=== PATIENT | male | born 1940 | race Caucasian/White ===

== ENCOUNTER 2019-01-26 07:32 | Day surgery (SDC) | payer MEDICARE, SELFPAY ==
--- NOTE | 2018-12-24 04:55 | HP_ITS ---
Intake Vital Signs 12/24/18 Height 6 ft 12/24/18 Weight: 210 lb 12/24/18 Body Mass Index (BMI) 28.5 12/24/18 Blood Pressure 125/66 H 12/24/18 Blood Pressure Location Rt brachial 12/24/18 Blood Pressure Position Sitting 12/24/18 Respiratory Rate 16 Intake Visit Reasons: C-Scope Consult [employer] Super[employer] Required: No Is patient in pain?: No Allergies No Known Allergies Allergy (Unverified 12/24/18 14:49) Medications lisinopril 10 mg tablet 10 mg PO DAILY 12/24/18 [History Confirmed 12/24/18] pioglitazone 30 mg tablet 30 mg PO DAILY 12/24/18 [History Confirmed 12/24/18] simvastatin 40 mg tablet 40 mg PO QHS 12/24/18 [History Confirmed 12/24/18] PFSH Medical History Diabetes (Acute) High cholesterol (Acute) Prostate cancer (Acute) HTN (hypertension) (Chronic) Surgical History S/P hernia repair (Acute) s/p seed implant (Acute) Family History Mother Diabetes Social History Smoking Status: Never smoker alcohol intake: current alcohol intake frequency: holidays/special occasions only HPI HPI HPI: ANNA MARIE MILLER, is a 77 M who presents to the office today for HPI HPI Surgical H&P: Yes HPI: ANNA MARIE MILLER, is a 77 M who presents to the office today for screening colonoscopy. The patient has never had a screening colonoscopy in the past. He has no abdominal pain or blood in his stool. He has no family history of colon cancer ROS General General: No weight change or fatigue Cardio Cardiovascular: No murmur, pacemaker, heart disease, atrial fibrillation, high blood pressure, heart attack, heart stent, palpitations, shortness of breat with exertion or chest pain Psych Psychiatric: No depression or anxiety Resp Respiratory: No shortness of breath, No sleep apnea, No cough, No COPD, No asthma, No emphysema, No wheezing Gastro Gastrointestinal: No abdominal pain, No nausea or vomiting, No diarrhea, No constipation, No blood in stool, No acid reflux, No hemorrhoids, No ulcers, No gallbladder problem, No black,tarry stools Christopher Hematologic: No blood thinners Exam Const General: cooperative Orientation: alert, oriented x3 Resp Effort & Inspection: normal respiratory effort Auscultation: clear to auscultation bilaterally Cardio Rate: regular rate Rhythm: regular rhythm Heart Sounds: no murmurs GI Inspection: non-distended Palpation: soft, nontender Assessment & Plan Problems 1. Encounter for screening colonoscopy Z12. Plan I explained endoscopy in detail to the patient. I explained the risks including but not limited to stroke or heart attack with anesthesia, perforation of the GI tract, bleeding, infection. I explained that any of these could necessitate further emergency surgery. The patient understands and all questions were answered sufficiently. The patient wishes to proceed with procedure. Juanpablo Storey MD Pager: [facility] [address] [place] [address], [address] [place] [address] Office: Coding Level of Care Code Off vis,new,level 2 Diagnoses Encounter for screening colonoscopy Z12.12/24/18 2870 <Electronically signed by Juanpablo Storey MD> Date Juanpablo Storey MD I have re-examined the patient. There are no clinical changes since date of exam.
[2018-12-24 14:49] VITALS: BMI 28.5
[2019-01-26 08:17] VITALS: BP 128/65; PULSE 57; RESP 16; TEMP 36.6; O2SAT 99; BMI 27.8
[2019-01-26 08:50] LABS: Bedside Glucose 143 mg/dL (70-110)
--- NOTE | 2019-01-26 10:22 | HP.PCM_ITS ---
History of Present Illness Date of Admission: 01/26/19 The patient is a 78 year old M here for screening colonoscopy. Patient has never had a colonoscopy before. He denies any abdominal pain or history of blood in his stool. No family history of colon cancer. Past Medical/Surgical History - Planned Operation Planned Operative Procedure/s: CSCOPE Date of Operative Procedure: 01/26/19 Permit Signed: No S.O.S: No Is This Patient Having a Total Joint: No - Previous Hospitalizations/Surgeries HX Hospitalizations: Yes HX of Surgeries: HERNIA REPAIR. RADIATION SEED IMPLANT Any Problems With Anesthesia: No You/Your Family Experience Fever (Hyperthermia) With Anes: No Cholinesterase deficiency: No - Cardiovascular Hx Chest Pain within Last 2 months: No Hx of Irregular Heartbeat and/or Afib: No Hx Heart Attack: No Hx Congestive Heart Failure: No Hx Rheumatic Fever: No Hx Hypertension: Yes - CONTROLLED WITH MED Hx Internal Defibrillator: No Hx Pacemaker: No Hx Cardiac Catheterization: No Hx Cardiac Surgery/Stents/Etc.: No Hx Stress Test: No HX Edema: No Hx Pain in Legs when Walking/Leg Cramps: No - Respiratory Chronic Cough: No HX of Shortness of Breath: No Hoarseness: No Hx Chronic Obstructive Pulmonary Disease (COPD): No Hx Asthma: No Hx Emphysema: No Hx Sleep Apnea: No Hx Oxygen Use at Home: No Hx Respiratory Tract Infection/Cold (presently): No Do You Snore Loudly (louder than talking or can be heard): Yes Do You Often Feel Tired/ Fatigued/ Sleepy Dring Daytime?: No Has Anyone Observed You Stop Breathing During Sleep?: No Result (for STOP score): Positive Hx Smoking: No Smoking Status: Never smoker - Gastrointestinal Hx Gastroesophageal Reflux: No Hx Gastrointestinal Disorders: No Hx Gastrointestinal Bleed: No Hx Ulcer: No Hx Hiatal Hernia: No Difficulty Chewing/Swallowing: No Recent Onset of Swallowing Problems: No Special diet followed at home: Yes - ADA Hx Unplanned Weight Loss of 20#: No HX Unplanned Weight Gain of 20#: No - Neurological Hx Seizures: No HX Syncope/Blackout Spells/Unconsciousness: No Hx CVA/Stroke: No - CEREBRAL HEMORRHAGE 2008/NO DEFICITS Hx Transient Ischemic Attacks (TIA): No Hx Multiple Sclerosis: No Hx Parkinson's Disease: No Hx Head/Neck Injury: No Hx Headaches: Yes - 2008 WITH HEMORRHAGE Hx Back Injury/Pain: Yes - OCC BACK PAIN D/T ARTHRITIS Recent Onset of Speech Difficulty: No Restless Legs: No Does patient have nerve stimulator: No Patient instructed to have device shut off: No Rep notified?: No - Blood Disorder Hx Leukemia: No Bleeding Tendencies: Yes - BRUISES EASILY Hx Deep Vein Thrombosis: Yes - DVT IN LEG IN THE PAST Hx High Cholesterol: Yes - ON MED Blood Transmitted Disease: No Hx Hepatitis: No Hx Cirrhosis: No Hx Anemia: No Hx Blood Disorders: No - Genitourinary Hx Renal Disease: No - PROSTATE CANCER - Musculoskeletal Hx Arthritis: Yes Hx Rheumatoid Arthritis: No Hx Gout: No Recent Onset of an Orthopedic Problem: No - Endocrine Hx Diabetes: Yes Insulin: No Thyroid Disease: No Hx Steroid Therapy: No - Psycho/Social Hx Substance Use: No Hx Alcohol Use: No Hx Anxiety: No Hx Depression: No Mental Illness: No Hx Dementia: No - Miscellaneous Hx Cancer: Yes - PROSTATE CA Recent Exposure to Contagious Disease: No Active MRSA: No Hx of C-Diff: No Any Loose Teeth: No Allergies No Known Allergies Allergy (Unverified 01/26/19 08:15) - Discharge Is Pt Admitted From a [facility], or a Alf: No Who Could Help: After D/C, Where Do you Plan to Go: Return Home - From the PAT History Number of Risk Factors: 4 - Physical Exam General: Alert, Oriented x3 Neck: No JVD Lungs: Normal air movement Cardiovascular: Regular rate, Regular Rhythm Abdomen: Soft, Non Tender, Non-Distended Vital Signs Temp Pulse Resp BP Pulse Ox 97.8 F 57 L 16 128/65 H 99 01/26/19 08:17 01/26/19 08:17 01/26/19 08:17 01/26/19 08:17 01/26/19 08:17 Oxygen Delivery Method Room Air Weight: 205 lb 0.478 oz Body Mass Index (BMI) 27.8 POC Glucose 01/26/19 08:32 POC Glucose 143 H Assessment/Plan All Active Problems (Last Reviewed 12/24/18 @ 14:48 by Emy Beckwith) Encounter for screening colonoscopy (Acute) 78-year-old male screening colonoscopy I explained endoscopy in detail to the patient. I explained the risks including but not limited to stroke or heart attack with anesthesia, perforation of the GI tract, bleeding, infection. I explained that any of these could necessitate further emergency surgery. The patient understands and all questions were answered sufficiently. The patient wishes to proceed with procedure. Juanpablo Storey MD Pager: [facility] [address] [place] [address] [address] [place] [address] Office: Surgery Risks - Colonoscopy Risks Include but are not Limited To: Risks include but are not limited to: Bleeding, perforation requiring further surgery, inability to complete colonoscopy requiring barium enema.
[2019-01-26 10:23] VITALS: BP 113/67; BP 128/65; PULSE 57; RESP 16; TEMP 36.6; O2SAT 98
--- NOTE | 2019-01-26 10:24 | OP.ENDO_ITS ---
01/26/2019 Shiva Morgan Re : Colonoscopy procedure for Luis Chen Dear Eddie This procedure was performed on Saturday, January 26, 2019. My impressions and recommendations are as follows: Impressions : - The entire examined colon is normal. - No specimens collected. Recommendations : - Discharge patient to home. - Resume previous diet. - Continue present medications. - Repeat colonoscopy is not recommended due to current age (66 years or older) for screening purposes. My findings are described in the full procedure note, which is enclosed. If I can be of further assistance, please feel free to contact me at Doctor phone number(s): , Work: . Sincerely, Juanpablo Storey MD 01/26/2019 10:23:51 AM This report has been signed electronically.
[2019-01-26 10:30] VITALS: BP 108/64; BP 128/65; PULSE 61; RESP 16; O2SAT 96
[2019-01-26 10:35] VITALS: BP 113/67; BP 128/65; PULSE 53; RESP 16; O2SAT 95
[2019-01-26 10:40] VITALS: BP 117/62; BP 128/65; PULSE 50; RESP 16; TEMP 36.4; O2SAT 96
[2019-01-26 10:59] VITALS: BP 128/65
== END 2019-01-26 11:01 | disposition home or self-care (01) ==
LOC: EN 07:33 → AC 07:35
PROVIDERS: Visit Provider Surgery
PROC: 0DJD8ZZ Inspection of Lower Intestinal Tract, Via Natural or Artificial Opening Endoscopic (ICD-10-PCS; CPT 45378; principal; 2019-01-26 08:40)
DX: Z12.11 Encounter for screening for malignant neoplasm of colon (principal); E11.9 Type 2 diabetes mellitus without complications; I10 Essential (primary) hypertension; E78.00 Pure hypercholesterolemia, unspecified; M19.90 Unspecified osteoarthritis, unspecified site; Z79.899 Other long term (current) drug therapy; Z86.718 Personal history of other venous thrombosis and embolism; Z85.46 Personal history of malignant neoplasm of prostate
CPT/HCPCS: G0121; 82962; J7120

== ENCOUNTER → 2023-12-15 | Outpatient (CLI) | payer MEDICARE, SELFPAY ==
[2023-12-15 13:18] LABS: PSA,Total- Diagnostic 0.18 ng/mL (0.0-4.0)
== END | disposition home or self-care (01) ==
LOC: BIMLAB 09:46
PROVIDERS: PCP Internal Medicine; Visit Provider Internal Medicine
DX: C61 Malignant neoplasm of prostate (principal)
CPT/HCPCS: 36415; 84153

== ENCOUNTER → 2024-03-19 | Outpatient (CLI) | payer MEDICARE, SELFPAY ==
[2024-03-19 11:20] LABS: ALB/GLOB Ratio 1.5 RATIO (0.9-2.4); AST(SGOT) 18 U/L (15-37); Absolute Lymphocyte Count 0.81 X10^3/uL (0.83-4.51); Absolute Neutrophil Count 3.6 X10^3/uL (2.0-7.7); Alanine Aminotransfer ALT/SGPT 21 U/L (16-61); Albumin, Serum 3.9 g/dL (3.2-5.0); Alkaline Phosphatase 63 U/L (45-117); Anion Gap 4 (5-15); BUN 38 mg/dL (7-18); BUN/Creat Ratio 23.9 RATIO (10-20); Basophil% 1.8 % (0-1); Calcium,Total 9.2 mg/dL (8.5-10.1); Chloride 110 mmol/L (98-107); Cholesterol 139 mg/dL (200); Creatinine, Serum 1.59 mg/dL (0.70-1.30); EST Glomerular Filtration Rate 45 mL/min (>60); Eosinophil# 0.33 X10^3/uL; Eosinophils% 6.1 % (0-5); Est Glom Filt Rate - Afr Amer 54 mL/min (>60); Globulin 2.6 g/dL (2.2-4.2); Glucose 137 mg/dL (74-106); Hematocrit 46.4 % (40-54); Hemoglobin 14.7 g/dL (13.0-16.5); High Density Lipoprotein 60 mg/dL; Lymphocyte # 0.81 X10^3/ul (0.83-4.51); Lymphocyte % 14.9 % (19-41); Mean Corp Hgb Conc 31.7 g/dL (32-36); Mean Corpuscular Hgb 32.1 pg (27.0-32.0); Mean Corpuscular Volume 101.3 fL (80-94); Mean Platelet Vol. 11.6 fl (6.2-12.0); Monocyte# 0.55 X10^3/uL; Monocyte% 10.1 % (0-10); NRBC Flagged by Analyzer 0 % (0-5); Neutrophil # 3.63 X10^3/uL (2.7-7.7); Neutrophil % 66.7 % (47-70); Platelet Count 236 K/mm3 (150-450); Potassium 5.5 mmol/L (3.5-5.1); Protein, Total 6.5 g/dL (6.4-8.2); RBC Distribution Width SD 52.5 fl (35.1-43.9); Red Blood Count 4.58 M/mm3 (4.6-6.2); Sodium Level 142 mmol/L (136-145); Triglycerides 55 mg/dL; Very Low Density Lipoprotein 11 mg/dL (5-40); White Blood Count 5.4 K/mm3 (4.4-11.0)
[2024-03-19 11:47] LABS: Microalbumin,Random Urine < 5.0 mg/L (NO RANGE EST.)
== END | disposition home or self-care (01) ==
PROVIDERS: PCP Internal Medicine; Referring Provider Internal Medicine; Visit Provider Internal Medicine
DX: E11.9 Type 2 diabetes mellitus without complications (principal); I10 Essential (primary) hypertension
CPT/HCPCS: 36415; 80053; 80061; 82043; 82570; 85025

== ENCOUNTER → 2024-04-02 | Outpatient (CLI) | payer MEDICARE, SELFPAY ==
[2024-04-02 09:20] LABS: Anion Gap 5 (5-15); BUN 36 mg/dL (7-18); BUN/Creat Ratio 23.4 RATIO (10-20); Calcium,Total 8.6 mg/dL (8.5-10.1); Chloride 110 mmol/L (98-107); Creatinine, Serum 1.54 mg/dL (0.70-1.30); EST Glomerular Filtration Rate 46 mL/min (>60); Est Glom Filt Rate - Afr Amer 56 mL/min (>60); Glucose 140 mg/dL (74-106); Potassium 4.3 mmol/L (3.5-5.1); Sodium Level 142 mmol/L (136-145)
== END | disposition home or self-care (01) ==
PROVIDERS: PCP Internal Medicine; Referring Provider Internal Medicine; Visit Provider Internal Medicine
DX: I10 Essential (primary) hypertension (principal)
CPT/HCPCS: 36415; 80048

== ENCOUNTER → 2024-06-25 | Outpatient (CLI) | payer MEDICARE, SELFPAY ==
[2024-06-25 12:20] LABS: Hematocrit 44.6 % (40-54); Hemoglobin 14.7 g/dL (13.0-16.5); Mean Platelet Vol. 11.7 fl (6.2-12.0); Platelet Count 272 K/mm3 (150-450); RBC Distribution Width CV 13.5 % (11.6-14.6); RBC Distribution Width SD 50.3 fl (35.1-43.9); Red Blood Count 4.46 M/mm3 (4.6-6.2); White Blood Count 5.5 K/mm3 (4.4-11.0)
[2024-06-25 13:02] LABS: ALB/GLOB Ratio 1.6 RATIO (0.9-2.4); AST(SGOT) 12 U/L (15-37); Alanine Aminotransfer ALT/SGPT 17 U/L (16-61); Albumin, Serum 3.8 g/dL (3.2-5.0); Alkaline Phosphatase 79 U/L (45-117); Anion Gap 4 (5-15); BUN 39 mg/dL (7-18); BUN/Creat Ratio 27.1 RATIO (10-20); Calcium,Total 9.1 mg/dL (8.5-10.1); Chloride 109 mmol/L (98-107); Cholesterol 143 mg/dL (200); Creatinine, Serum 1.44 mg/dL (0.70-1.30); EST Glomerular Filtration Rate 50 mL/min (>60); Est Glom Filt Rate - Afr Amer 60 mL/min (>60); Globulin 2.4 g/dL (2.2-4.2); Glucose 145 mg/dL (74-106); High Density Lipoprotein 58 mg/dL; Protein, Total 6.2 g/dL (6.4-8.2); Sodium Level 141 mmol/L (136-145); T4 Free Direct 0.93 ng/dL (0.76-1.46); Triglycerides 70 mg/dL; Very Low Density Lipoprotein 14 mg/dL (5-40)
== END | disposition home or self-care (01) ==
LOC: BIMLAB 09:41
PROVIDERS: PCP Internal Medicine; Referring Provider Internal Medicine; Visit Provider Internal Medicine
DX: I12.9 Hypertensive chronic kidney disease with stage 1 through stage 4 chronic kidney disease, or unspecified chronic kidney disease (principal); E11.22 Type 2 diabetes mellitus with diabetic chronic kidney disease; N18.31 Chronic kidney disease, stage 3a
CPT/HCPCS: 36415; 80053; 80061; 84439; 84443; 85027

== ENCOUNTER → 2025-03-18 | Outpatient (CLI) | payer MEDICARE, SELFPAY ==
--- OUTSIDE RECORDS SUMMARY | 2025-03-18 10:03 | XMS RPT_ITS | CCD ---
Author Organization [facility] Care Team Providers Care Greaser Helper Name Role Phone Dr. Shiva Morgan Primary Care Provider Dr. Shiva Morgan Referring Provider [phone] Cortez Valle Attending Provider [phone] Oleghe, Efewongbe Referring Unavailable Oleghe, Efewongbe Attending Unavailable Oleghe, Efewongbe Primary Care Unavailable Oleghe, Efewongbe Referring Unavailable Oleghe, Efewongbe Attending Unavailable Oleghe, Efewongbe Primary Care Unavailable Oleghe, Efewongbe Referring Unavailable Oleghe, Efewongbe Attending Unavailable Oleghe, Efewongbe Primary Care Unavailable Oleghe, Efewongbe Primary Care Unavailable Oleghe, Efewongbe Referring Unavailable Oleghe, Efewongbe Attending Unavailable Oleghe, Efewongbe Attending Unavailable Shiva Morgan Referring Unavailable Shiva Morgan Primary Care Unavailable Oleghe, Efewongbe Referring Unavailable Oleghe, Efewongbe Attending Unavailable Oleghe, Efewongbe Primary Care Unavailable Oleghe, Efewongbe Primary Care Unavailable Oleghe, Efewongbe Referring Unavailable Oleghe, Efewongbe Attending Unavailable Oleghe, Efewongbe Primary Care Unavailable Oleghe, Efewongbe Attending Unavailable Oleghe Dr. Cortez MOMIN Primary Care Provider Dr. Cortez Valle MD Attending Provider [phone] Dr. Cortez Valle MD Referring Provider [phone] Medications Current Medications Medication Drug Class(es) Dates Sig (Normalized) Sig (Original) empagliflozin 25 mg oral tablet (5 sources) Sodium-Glucose Cotransporter 2 Inhibitor Start: 12-15-2023 End: 11-26-2024 take 1 tablet by mouth once daily Empagliflozin 25 mg tablet Active 25 mg PO DAILY 90 November 26, 2024 8:36am Start: 12-15-2023 End: 12-15-2023 take 1 tablet by mouth once daily Empagliflozin (Jardiance) 10 mg tablet Discontinued 10 mg PO DAILY December 15, 2023 12:00am December 15, 2023 9:28am levocetirizine dihydrochloride 5 mg oral tablet (4 sources) Histamine-1 Receptor Antagonist Start: 12-15-2023 End: 11-29-2024 take 1 tablet by mouth once daily Levocetirizine 5 mg tablet Active 5 mg PO DAILY 90 November 29, 2024 4:44pm lisinopril 10 mg oral tablet (4 sources) Angiotensin Converting Enzyme Inhibitor Start: 12-24-2018 End: 12-01-2024 take 1 tablet by mouth once daily Lisinopril 10 mg tablet Active 10 mg PO DAILY 90 December 01, 2024 8:53pm pioglitazone 45 mg oral tablet (5 sources) Peroxisome Proliferator Receptor alpha Agonist, Peroxisome Proliferator Receptor gamma Agonist, Thiazolidinedione Start: 03-18-2025 take 1 tablet by mouth once daily Pioglitazone 45 mg tablet Active 45 mg PO DAILY 90 3 March 18, 2025 8:53am Start: 12-24-2018 End: 03-18-2025 take 1 tablet by mouth once daily Pioglitazone 30 mg tablet Discontinued 30 mg PO DAILY 90 December 01, 2024 8:53pm March 18, 2025 8:53am simvastatin 40 mg oral tablet (4 sources) HMG-CoA Reductase Inhibitor Start: 12-24-2018 End: 12-01-2024 take 1 tablet by mouth at bedtime Simvastatin 40 mg tablet Active 40 mg PO AT BEDTIME 90 December 01, 2024 8:53pm Problems Active Problems Problem Classification Problem Date Documented Da te Episodic/Chronic Cancer of prostate (4 sources) Malignant tumor of prostate; Translations: [Malignant neoplasm of prostate] Onset: 03-10-2024 12-15-2023 Chronic Diabetes mellitus without complication (6 sources) Type 2 diabetes mellitus; Translations: [Type 2 diabetes mellitus without complications] Onset: 12-01-2024 12-15-2023 Chronic Disorders of lipid metabolism (6 sources) Hyperlipidemia; Translations: [Hyperlipidemia, unspecified] Onset: 03-19-2024 12-15-2023 Chronic Essential hypertension (6 sources) Hypertensive disorder; Translations: [Essential (primary) hypertension] Onset: 04-27-2024 12-15-2023 Chronic Hypertension with complications and secondary hypertension (1 source) Hypertensive chronic kidney disease with stage 1 through stage 4 chronic kidney disease, or unspecified chronic kidney disease; Translations: [Hypertensive chronic kidney disease with stage 1 through stage 4 chronic kidney disease, or unspecified chronic kidney disease] Onset: 07-20-2024 Chronic Other screening for suspected conditions (not mental disorders or infectious disease) (2 sources) Patient encounter status; Translations: [Encounter for screening for malignant neoplasm of colon] 12-24-2018 Episodic Other upper respiratory infections (2 sources) Upper respiratory infection; Translations: [Acute upper respiratory infection, unspecified] 12-01-2024 Episodic Past or Other Problems Problem Classification Problem Date Documented Da te Episodic/Chronic Unclassified (2 sources) s/p seed implant 03-18-2022 Results Test Name Value Interpretation Reference Range Facility Internal Medicine Office Vis iton 12-01-2024 Internal Medicine Office Visit [facility] [address] [facility] [place] [address] OFFICE VISIT Date of Service: 12/01/24 MR#: [id number] Acct: [id number] Name: LUIS CHEN Rep #: [id number] : 1940 Provider: Dr. Cortez gold MD Age/Sex: 83/M Location: [facility] Status: Signed Intake Vital Signs 06/25/24 09:26 12/01/24 10:38 Height 6 ft 6 ft Weight: 187 lb BMI 25.3 BP 120/70 Blood Pressure Location Lt brachial Position Sitting Respiration 14 Pulse 62 Pulse Source Monitor Temp 98.2 F Temp Source Temporal Pulse Oximetry (%) 97 Oxygen Delivery Method room air Intake Visit Reasons: 5 M FU Chief Complaint: Follow-up chronic conditions Asbestos Siding Installer Required: No Accompanied by: Is patient in pain?: No Allergies No Known Allergies Allergy (Unverified 12/01/24 10:29) Medications ???Medication ???Instructions ???Recorded ???Confirmed ???Type lisinopril 10 mg tablet 10 mg PO DAILY #90 tabs 12/25/23 0 12/01/24 Rx pioglitazone 30 mg tablet 30 mg PO DAILY #90 tabs 12/25/23 0 12/01/24 Rx simvastatin 40 mg tablet 40 mg PO QHS #90 tabs 12/25/23 Rx empagliflozin 25 mg tablet 25 mg PO DAILY #90 tabs 11/26/24 0 12/01/24 Rx levocetirizine 5 mg tablet 5 mg PO DAILY #90 tabs 11/29/24 Rx Have you fallen in the past year?: No [facility] Medical History (Updated 12/01/24 @ 11:[address] Cortez Valle MD) Upper respiratory infection Health care maintenance Hyperlipidemia Type 2 diabetes mellitus Prostate cancer High cholesterol HTN (hypertension) Diabetes Surgical History S/P hernia repair s/p seed implant Family History Mother Diabetes Father Cancer Social History adopted: No household members: spouse number of children: 3 current occupational status: retired pets and animals: No Smoking Status: Never smoker alcohol intake: never substance use type: does not use caffeine: No do you feel safe at home: Yes HPI HPI Chief Complaint: Follow-up chronic conditions Details: LUIS CHEN, is a 83 M who presents to the office today for follow-up of his chronic medical conditions. No acute concerns at this time. History of diabetes mellitus type 2 and A1c today is at 8.1 up from 7.7 at last check. He states that his PCP in [place] advised that he make some dietary changes which he has started doing. He also states that he remains active and has been taking his medications as prescribed. No concerns for hypoglycemia. History of hypertension, blood pressure today is at 120/70 mmHg. No syncopal and near syncopal episodes. Other chronic medical conditions are stable. Recent upper respiratory infection however, he states that he symptoms are improving. ROS Const Constitutional: No body ache, chills, excessive sweating, fatigue, fever(s), frequent falls, headache(s), snoring, weakness, sleep problems or change in appetite Eyes Eyes: No blurry vision, change in vision, floaters, visual disturbances, eye pain or Light sensitivity ENT ENT: Positive for nasal congestion, hoarseness and other; No abnormal hearing, ear or mastoid pain, tinnitus, balance problems, nosebleed/epistaxis, headache(s), neck pain or sore throat Resp Respiratory: No cough, excessive phlegm production, shortness of breath, snoring or wheezing Cardio Cardiology: No chest pain at rest, chest pain with exertion, excessive sweating, shortness of breath, dyspnea on exertion, lightheadedness, orthopnea or palpitations Gastro GI: No abdominal pain, change in bowel habits, constipation, cramping, diarrhea, nausea/dyspepsia or vomiting Genitourinary Male: No burning urination, painful urination, urinary incontinence or urinary frequency Musc Musculoskeletal: No abnormal gait, joint pain, back pain, limited range of motion, neck pain or numbness Skin Skin: No dry skin, redness, excessive hair growth, yellowing of the eye, lesions, itchy eyes, rash or wounds Neuro Neurology: No abnormal gait, abnormal hearing, behavioral changes, unsteady gait/balance, weakness, frequent falls, headache(s), memory loss, numbness or visual disturbances Psych Psychiatric: No anxiety, No behavioral changes, No change in appetite, No depression, No memory loss and No Thoughts of harming yourself/Others Endo Endocrine: Positive for other; No cold intolerance, excessive sweating, fatigue, flushing, heat intolerance, increased thirst/drinking or increased hunger Aller/Imm Allergy/Immunologic: No itchy eyes, seasonal allergy symptoms, hives or wheezing Christopher/Lymp Hematologic/Lymphatic: No easy bleeding, easy bruising, en (more content not included)... Normal [facility] - Hematology and Cell countsOrdered By: Cortez Valle on 12-01-2024 HbA1c (Bld) [Mass fraction] 8.1 % High 4.2-6.3 [facility] CBC-Complete Blood Cnt No Di ffon 06-25-2024 Erythrocyte distribution width (RBC) [Ratio] 13.5 % Normal 11.6-14.6 [facility] Comment on above: Performed By: #### L 100.0500, L500.4100, L500.4050, L501.9520, L506.0400 #### [facility] [address], [address] Hematocrit (Bld) [Volume fraction] 44.6 % Normal 40-54 [facility] Comment on above: Performed By: #### L 100.0500, L500.4100, L500.4050, L501.9520, L506.0400 #### [facility] [address] [place], [address] Hemoglobin (Bld) [Mass/Vol] 14.7 g/dL Normal 13.0-16.5 [facility] Comment on above: Performed By: #### L 100.0500, L500.4100, L500.4050, L501.9520, L506.0400 #### [facility] [address] [place], [address] MCH (RBC) [Entitic mass] 33.0 pg High 27.0-32.0 [facility] Comment on above: Performed By: #### L 100.0500, L500.4100, L500.4050, L501.9520, L506.0400 #### [facility] [address] [place], [address] MCHC (RBC) [Mass/Vol] 33.0 g/dL Normal 32-36 [facility] Comment on above: Performed By: #### L 100.0500, L500.4100, L500.4050, L501.9520, L506.0400 #### [facility] [address] [place], [address] MCV (RBC) [Entitic vol] 100.0 fL High 80-94 [facility] Comment on above: Performed By: #### L 100.0500, L500.4100, L500.4050, L501.9520, L506.0400 #### [facility] [address] [place], [address] Platelet mean volume (Bld) [Entitic vol] 11.7 fL Normal 6.2-12.0 [facility] Comment on above: Performed By: #### L 100.0500, L500.4100, L500.4050, L501.9520, L506.0400 #### [facility] [address] [place], [address] Platelets (Bld) [#/Vol] 272 10*3/uL Normal 150-450 [facility] Comment on above: Performed By: #### L 100.0500, L500.4100, L500.4050, L501.9520, L506.0400 #### [facility] [address] [place], [address] RBC (Bld) [#/Vol] 4.46 10*6/uL Low 4.6-6.2 [facility] Comment on above: Performed By: #### L 100.0500, L500.4100, L500.4050, L501.9520, L506.0400 #### [facility] [address] [place], [address] RDW SD 50.3 fl High 35.1-43.9 [facility] Comment on above: Performed By: #### L 100.0500, L500.4100, L500.4050, L501.9520, L506.0400 #### [facility] [address] [place], [address] WBC (Bld) [#/Vol] 5.5 10*3/uL Normal 4.4-11.0 [facility] Comment on above: Performed By: #### L 100.0500, L500.4100, L500.4050, L501.9520, L506.0400 #### [facility] [address] [place], [address] Comprehensive Metabolic Prof ilon 06-25-2024 Albumin [Mass/Vol] 3.8 g/dL Normal 3.2-5.0 [facility] Comment on above: Order Comment: DR. Kia DELGADO ORDERED BMP PHILLIP DE LOS SANTOS ORDERED CBC, CMP, LIPID, TSH AND FT4 Performed By: #### L 100.0500, L500.4100, L500.4050, L501.9520, L506.0400 #### [facility] [address] [place], [address] Albumin/Globulin [Mass ratio] 1.6 {ratio} Normal 0.9-2.4 [facility] Comment on above: Order Comment: DR. Kia DELGADO ORDERED BMP PHILLIP FILIBERTO ORDERED CBC, CMP, LIPID, TSH AND FT4 Performed By: #### L 100.0500, L500.4100, L500.4050, L501.9520, L506.0400 #### [facility] [address] [place], [address] ALK P 79 U/L Normal 45-117 [facility] Comment on above: Order Comment: DR. Kia DELGADO ORDERED BMP PHILLIP DE LOS SANTOS ORDERED CBC, CMP, LIPID, TSH AND FT4 Performed By: #### L 100.0500, L500.4100, L500.4050, L501.9520, L506.0400 #### [facility] [address] [place], [address] ALT [Catalytic activity/Vol] 17 U/L Normal 16-61 [facility] Comment on above: Order Comment: DR. Kia DELGADO ORDERED BMP PHILLIP DE LOS SANTOS ORDERED CBC, CMP, LIPID, TSH AND FT4 Performed By: #### L 100.0500, L500.4100, L500.4050, L501.9520, L506.0400 #### [facility] [address] [place], [address] AST [Catalytic activity/Vol] 12 U/L Low 15-37 [facility] Comment on above: Order Comment: DR. Kia DELGADO ORDERED BMP PHILLIP DE LOS SANTOS ORDERED CBC, CMP, LIPID, TSH AND FT4 Performed By: #### L 100.0500, L500.4100, L500.4050, L501.9520, L506.0400 #### [facility] [address] [place], [address] Bilirubin [Mass/Vol] 1.30 mg/dL High 0.20-1.00 [facility] Comment on above: Order Comment: DR. Kia DELGADO ORDERED BMP PHILLIP DE LOS SANTOS ORDERED CBC, CMP, LIPID, TSH AND FT4 Result Comment: For patients on eltrombopag therapy, use of Dimension Counce TBIL is not recommended. Performed By: #### L 100.0500, L500.4100, L500.4050, L501.9520, L506.0400 #### [facility] [address] [place], [address] BUN/CRE 27.1 RATIO High 10-20 [facility] Comment on above: Order Comment: DR. Kia DELGADO ORDERED SIMON DE LOS SANTOS ORDERED CBC, CMP, LIPID, TSH AND FT4 Performed By: #### L 100.0500, L500.4100, L500.4050, L501.9520, L506.0400 #### [facility] [address] [place], [address] CA,Total 9.1 mg/dL Normal 8.5-10.1 [facility] Comment on above: Order Comment: DR. Kia DELGADO ORDERED SIMON DE LOS SANTOS ORDERED CBC, CMP, LIPID, TSH AND FT4 Performed By: #### L 100.0500, L500.4100, L500.4050, L501.9520, L506.0400 #### [facility] [address] [place], [address] Chloride [Moles/Vol] 109 mmol/L High 98-107 [facility] Comment on above: Order Comment: DR. Kia DELGADO ORDERED BMP PHILLIP DE LOS SANTOS ORDERED CBC, CMP, LIPID, TSH AND FT4 Performed By: #### L 100.0500, L500.4100, L500.4050, L501.9520, L506.0400 #### [facility] [address] [place], [address] CO2 [Moles/Vol] 28.0 mmol/L Normal 21.0-32.0 [facility] Comment on above: Order Comment: DR. Kia DELGADO ORDERED BMP PHILLIP DE LOS SANTOS ORDERED CBC, CMP, LIPID, TSH AND FT4 Performed By: #### L 100.0500, L500.4100, L500.4050, L501.9520, L506.0400 #### [facility] [address] [place], [address] Creatinine [Mass/Vol] 1.44 mg/dL High 0.70-1.30 [facility] Comment on above: Order Comment: DR. Kia DELGADO ORDERED BMP PHILLIP DE LOS SANTOS ORDERED CBC, CMP, LIPID, TSH AND FT4 Result Comment: The validity of the calculated GFR GFRAA in patients over 70 years has not been determined. Clinical correlation is essential. Performed By: #### L 100.0500, L500.4100, L500.4050, L501.9520, L506.0400 #### [facility] [address] [place], [address] EST GFR - AA 60 mL/min Normal >60 [facility] Comment on above: Order Comment: DR. Kia DELGADO ORDERED BMP PHILLIP DE LOS SANTOS ORDERED CBC, CMP, LIPID, TSH AND FT4 Result Comment: Afri can Guyanese GFR Calc Performed By: #### L 100.0500, L500.4100, L500.4050, L501.9520, L506.0400 #### [facility] [address] [place], [address] GAP 4 Low 5-15 [facility] Comment on above: Order Comment: DR. Kia DELGADO ORDERED BMP PHILLIP DE LOS SANTOS ORDERED CBC, CMP, LIPID, TSH AND FT4 Performed By: #### L 100.0500, L500.4100, L500.4050, L501.9520, L506.0400 #### [facility] [address] [place], [address] GFR/1.73 sq M.predicted among non-blacks MDRD (S/P/Bld) [Vol rate/Area] 50 mL/min/{1.73_m2} Low >60 [facility] Comment on above: Order Comment: DR. Kia DELGADO ORDERED BMP PHILLIP DE LOS SANTOS ORDERED CBC, CMP, LIPID, TSH AND FT4 Result Comment: Non- GFR Calc Performed By: #### L 100.0500, L500.4100, L500.4050, L501.9520, L506.0400 #### [facility] [address] [place], [address] Globulin (S) [Mass/Vol] 2.4 g/dL Normal 2.2-4.2 [facility] Comment on above: Order Comment: DR. Kia DELGADO ORDERED [facility] PHILLIP DE LOS SANTOS ORDERED CBC, CMP, LIPID, TSH AND FT4 Performed By: #### L 100.0500, L500.4100, L500.4050, L501.9520, L506.0400 #### [facility] [address] [place], [address] Glucose [Mass/Vol] 145 mg/dL High 74-106 [facility] Comment on above: Order Comment: DR. Kia DELGADO ORDERED BMP PHILLIP DE LOS SANTOS ORDERED CBC, CMP, LIPID, TSH AND FT4 Result Comment: Fast ing Glucose result greater than or equal to 126 mg/dL suggests DIABETES MELLITUS per A.D.A. criteria. Performed By: #### L 100.0500, L500.4100, L500.4050, L501.9520, L506.0400 #### [facility] [address] [place], [address] Potassium [Moles/Vol] 5.0 mmol/L Normal 3.5-5.1 [facility] Comment on above: Order Comment: DR. Kia DELGADO ORDERED BMP PHILLIP DE LOS SANTOS ORDERED CBC, CMP, LIPID, TSH AND FT4 Performed By: #### L 100.0500, L500.4100, L500.4050, L501.9520, L506.0400 #### [facility] [address] [place], [address] Sodium [Moles/Vol] 141 mmol/L Normal 136-145 [facility] Comment on above: Order Comment: DR. Kia DELGADO ORDERED BMP PHILLIP DE LOS SANTOS ORDERED CBC, CMP, LIPID, TSH AND FT4 Performed By: #### L 100.0500, L500.4100, L500.4050, L501.9520, L506.0400 #### [facility] [address] [place], [address] T PROT 6.2 g/dL Low 6.4-8.2 [facility] Comment on above: Order Comment: DR. Kia DELGADO ORDERED SIMON DE LOS SANTOS ORDERED CBC, CMP, LIPID, TSH AND FT4 Performed By: #### L 100.0500, L500.4100, L500.4050, L501.9520, L506.0400 #### [facility] [address] [place], [address] Urea nitrogen [Mass/Vol] 39 mg/dL High 7-18 [facility] Comment on above: Order Comment: DR. Kia DELGADO ORDERED BMP PHILLIP DE LOS SANTOS ORDERED CBC, CMP, LIPID, TSH AND FT4 Performed By: #### L 100.0500, L500.4100, L500.4050, L501.9520, L506.0400 #### [facility] [address] [place], [address] Internal Medicine Office Vis gurwinder 06-25-2024 Internal Medicine Office Visit [facility] [address] [place] [address] [address] [place] [address] OFFICE VISIT Date of Service: 06/25/24 MR#: [id number] Acct: [id number] Name: LUIS CHEN Rep #: [id number] : 1940 Provider: Dr. Cortez gold MD Age/Sex: 83/M Location: [facility] Status: Signed Intake Vital Signs 03/19/24 09:17 06/25/24 09:26 Height 6 ft 6 ft Weight: 198 lb BMI 26.8 BP 118/62 Blood Pressure Location Lt brachial Position Sitting Respiration 16 Pulse 55 L Pulse Source Monitor Temp 97.7 F L Temp Source Temporal Pulse Oximetry (%) 97 Oxygen Delivery Method room air Intake Visit Reasons: 3 M FU Chief Complaint: 3 M FU Asbestos Siding Installer Required: No Accompanied by: Self Is patient in pain?: No Allergies No Known Allergies Allergy (Unverified 06/25/24 09:19) Medications ???Medication ???Instructions ???Recorded ???Confirmed ???Type empagliflozin 25 mg tablet 25 mg PO DAILY #90 tabs 12/15/23 06/25/24 Rx levocetirizine 5 mg tablet 5 mg PO DAILY #90 tabs 12/25/23 06/25/24 Rx lisinopril 10 mg tablet 10 mg PO DAILY #90 tabs 12/25/23 06/25/24 Rx pioglitazone 30 mg tablet 30 mg PO DAILY #90 tabs 12/25/23 06/25/24 Rx simvastatin 40 mg tablet 40 mg PO QHS #90 tabs 12/25/23 06/25/24 Rx Have you fallen in the past year?: No PFSH Medical History Health care maintenance Hyperlipidemia Type 2 diabetes mellitus Prostate cancer High cholesterol HTN (hypertension) Diabetes Surgical History S/P hernia repair s/p seed implant Family History Mother Diabetes Father Cancer Social History adopted: No household members: spouse number of children: 3 current occupational status: retired pets and animals: No Smoking Status: Never smoker alcohol intake: never substance use type: does not use caffeine: No do you feel safe at home: Yes HPI HPI Chief Complaint: 3 M FU Details: LUIS CHEN, is a 83 M who presents to the office today for follow-up of his chronic medical conditions. No acute concerns at this time. A1c today is at 7.7 up from 7.3. He admits that he has not been as active and has had a little more sweets than typical. He plans to make changes. Reports compliance with his medication. No concerns for hypoglycemia, does not routinely check his numbers at home. Other chronic medical conditions are stable. Will be going to [place] for the winter ROS Const Constitutional: No body ache, chills, excessive sweating, fatigue, fever(s), frequent falls, headache(s), snoring, weakness or change in appetite Eyes Eyes: No blurry vision, change in vision, bulging eyes, floaters, visual disturbances, eye pain or Light sensitivity ENT ENT: No abnormal hearing, ear or mastoid pain, tinnitus, balance problems, nosebleed/epistaxis, nasal congestion, headache(s), neck pain or sore throat Resp Respiratory: No cough, excessive phlegm production, pain on inspiration, shortness of breath, snoring or wheezing Cardio Cardiology: No chest pain at rest, chest pain with exertion, excessive sweating, dyspnea on exertion, lightheadedness, orthopnea or palpitations Gastro GI: No abdominal pain, change in bowel habits, constipation, cramping, diarrhea, nausea/dyspepsia or vomiting Genitourinary Male: No burning urination, painful urination, urinary incontinence or urinary frequency Musc Musculoskeletal: No abnormal gait, joint pain, back pain, limited range of motion, muscle weakness, neck pain or numbness Skin Skin: No dry skin, redness, excessive hair growth, yellowing of the eye, lesions, itchy eyes, rash or wounds Neuro Neurology: No abnormal gait, abnormal hearing, behavioral changes, unsteady gait/balance, weakness, frequent falls, headache(s), memory loss, numbness or visual disturbances Psych Psychiatric: No anxiety, No behavioral changes, No change in appetite, No depression, No memory loss and No Thoughts of harming yourself/Others Endo Endocrine: No cold intolerance, excessive sweating, fatigue, flushing, heat intolerance, increased thirst/drinking or increased hunger Aller/Imm Allergy/Immunologic: No itchy eyes, seasonal allergy symptoms, hives or wheezing Christopher/Lymp Hematologic/Lymphatic: No easy bleeding or easy bruising Exam Const General: cooperative, comfortable and no acute distress Orientation: alert, awake and oriented x3 HENMT Head: normal to inspection, normocephalic and atraumatic Ears: hearing grossly normal bilaterally Eyes General: appearance normal, both eyes and all related structures Neck Neck: normal visual inspection, full ROM and no lymphadenopathy (more content not included)... Normal [facility] Lipid Profileon 06-25-2024 Cholesterol [Mass/Vol] 143 mg/dL Normal 200 [facility] Comment on above: Order Comment: DR. Kia DELGADO ORDERED [facility] PHILLIP DE LOS SANTOS ORDERED CBC, CMP, LIPID, TSH AND FT4 Result Comment: <200 mg/dL Desirable 200-240 mg/dL Borderline >240 mg/dL High Risk Performed By: #### L 100.0500, L500.4100, L500.4050, L501.9520, L506.0400 #### [facility] [address] [place], [address] Cholesterol in HDL [Mass/Vol] 58 mg/dL Normal [facility] Comment on above: Order Comment: DR. Kia DELGADO ORDERED [facility] PHILLIP DE [place] ORDERED CBC, CMP, LIPID, TSH AND FT4 Result Comment: The drugs N-Acetylcysteine and Metamizole may falsely depress this assay. Reference Range HDL <40 mg/dL Low HDL Cholesterol HDL >or= 60 mg/dL High HDL Cholesterol Performed By: #### L 100.0500, L500.4100, L500.4050, L501.9520, L506.0400 #### [facility] [address] [place], [address] Cholesterol in LDL [Mass/Vol] 71 mg/dL Normal 0-130 [facility] Comment on above: Order Comment: DR. Kia DELGADO ORDERED BMP [facility] ORDERED CBC, CMP, LIPID, TSH AND FT4 Performed By: #### L 100.0500, L500.4100, L500.4050, L501.9520, L506.0400 #### [facility] [address] [place], [address] Cholesterol in VLDL [Mass/Vol] 14 mg/dL Normal 5-40 [facility] Comment on above: Order Comment: DR. Kia DELGADO ORDERED BMP [facility] ORDERED CBC, CMP, LIPID, TSH AND FT4 Performed By: #### L 100.0500, L500.4100, L500.4050, L501.9520, L506.0400 #### [facility] [address] [place], [address] Triglyceride [Mass/Vol] 70 mg/dL Normal [facility] Comment on above: Order Comment: DR. Kia DELGADO ORDERED BMP [facility] ORDERED CBC, CMP, LIPID, TSH AND FT4 Result Comment: The drugs N-Acetylcysteine and Metamizole may falsely depress this assay. Serum Triglycerides Reference Interval Normal <150 mg/dL Borderline high 150 - 199 mg/dL High 200 - 499 mg/dL Very High > or = 500 mg/dL Performed By: #### L 100.0500, L500.4100, L500.4050, L501.9520, L506.0400 #### [facility] [address] [place], [address] T4 Free Directon 06-25-2024 T4 FREE DIRECT 0.93 ng/dL Normal 0.76-1.46 [facility] Comment on above: Order Comment: DR. Kia DELGADO ORDERED BMP [facility] DE [facility] ORDERED CBC, CMP, LIPID, TSH AND FT4 Performed By: #### L 100.0500, L500.4100, L500.4050, L501.9520, L506.0400 #### [facility] [address] [place], [address] Thyroid Stim Hormone (TSH)on 06-25-2024 TSH 1.010 uIU/mL Normal 0.358-3.740 [facility] Comment on above: Order Comment: DR. Kia DELGADO ORDERED BMP [facility] ORDERED CBC, CMP, LIPID, TSH AND FT4 Performed By: #### L 100.0500, L500.4100, L500.4050, L501.9520, L506.0400 #### [facility] [address] [place], [address] Basic Metabolic Profile (BMP )on 04-02-2024 BUN/CRE 23.4 RATIO High 10-20 [facility] Comment on above: Performed By: #### L 500.2500 ####[facility] [address] [place], [address] CA,Total 8.6 mg/dL Normal 8.5-10.1 [facility] Comment on above: Performed By: #### L 500.2500 ####[facility] [address] [place], [address] Chloride [Moles/Vol] 110 mmol/L High 98-107 [facility] Comment on above: Performed By: #### L 500.2500 ####[facility] [address] [place], [address] CO2 [Moles/Vol] 27.0 mmol/L Normal 21.0-32.0 [facility] Comment on above: Performed By: #### L 500.2500 ####[facility] [address] [place], [address] Creatinine [Mass/Vol] 1.54 mg/dL High 0.70-1.30 [facility] Comment on above: Result Comment: The validity of the calculated GFR GFRAA in patients over 70 years has not been determined. Clinical correlation is essential. Performed By: #### L 500.2500 ####[facility] [address] [place], [address] EST GFR - AA 56 mL/min Low >60 [facility] Comment on above: Result Comment: Afri can Guyanese GFR Calc Performed By: #### L 500.2500 ####[facility] [address] [place], [address] GAP 5 Normal 5-15 [facility] Comment on above: Performed By: #### L 500.2500 ####[facility] [address] [place], [address] GFR/1.73 sq M.predicted among non-blacks MDRD (S/P/Bld) [Vol rate/Area] 46 mL/min/{1.73_m2} Low >60 [facility] Comment on above: Result Comment: Non- GFR Calc Performed By: #### L 500.2500 ####[facility] [address] [place], [address] Glucose [Mass/Vol] 140 mg/dL High 74-106 [facility] Comment on above: Result Comment: Fast ing Glucose result greater than or equal to 126 mg/dL suggests DIABETES MELLITUS per A.D.A. criteria. Performed By: #### L 500.2500 ####[facility] [address] [place], [address] Potassium [Moles/Vol] 4.3 mmol/L Normal 3.5-5.1 [facility] Comment on above: Performed By: #### L 500.2500 ####[facility] [address] [place], [address] Sodium [Moles/Vol] 142 mmol/L Normal 136-145 [facility] Comment on above: Performed By: #### L 500.2500 ####[facility] [address] [place], [address] Urea nitrogen [Mass/Vol] 36 mg/dL High 7-18 [facility] Comment on above: Performed By: #### L 500.2500 ####[facility] [address] [place], [address] CBC W/Diff, Automatedon 08-0 Absolute Lymph 0.81 X10 3/uL Low 0.83-4.51 [facility] Comment on above: Performed By: #### L 500.4050, L500.4100, L100.0100 #### [facility] [address] [place], [address] Absolute Neut 3.6 X10 3/uL Normal 2.0-7.7 [facility] Comment on above: Performed By: #### L 500.4050, L500.4100, L100.0100 #### [facility] [address] [place], [address] Basophils/100 WBC (Bld) 1.8 % High 0-1 [facility] Comment on above: Performed By: #### L 500.4050, L500.4100, L100.0100 #### [facility] [address] [place], [address] Eosinophils/100 WBC (Bld) 6.1 % High 0-5 [facility] Comment on above: Performed By: #### L 500.4050, L500.4100, L100.0100 #### [facility] [address] [place], [address] Erythrocyte distribution width (RBC) [Ratio] 14.0 % Normal 11.6-14.6 [facility] Comment on above: Performed By: #### L 500.4050, L500.4100, L100.0100 #### [facility] [address] [place], [address] Hematocrit (Bld) [Volume fraction] 46.4 % Normal 40-54 [facility] Comment on above: Performed By: #### L 500.4050, L500.4100, L100.0100 #### [facility] [address] [place], [address] Hemoglobin (Bld) [Mass/Vol] 14.7 g/dL Normal 13.0-16.5 [facility] Comment on above: Performed By: #### L 500.4050, L500.4100, L100.0100 #### [facility] [address] [place], [address] IG% 0.400 Normal 0.0-0.9 [facility] Comment on above: Result Comment: IG% - Immature Granulocytes (promyelocytes, myelocytes and metamyelocytes) > 1% indicates that a LEFT SHIFT is Present. Performed By: #### L 500.4050, L500.4100, L100.0100 #### [facility] [address] [place], [address] Lymphocytes/100 WBC (Bld) 14.9 % Low 19-41 [facility] Comment on above: Performed By: #### L 500.4050, L500.4100, L100.0100 #### [facility] [address] [place], [address] MCH (RBC) [Entitic mass] 32.1 pg High 27.0-32.0 [facility] Comment on above: Performed By: #### L 500.4050, L500.4100, L100.0100 #### [facility] [address] [place], [address] MCHC (RBC) [Mass/Vol] 31.7 g/dL Low 32-36 [facility] Comment on above: Performed By: #### L 500.4050, L500.4100, L100.0100 #### [facility] [address] [place], [address] MCV (RBC) [Entitic vol] 101.3 fL High 80-94 [facility] Comment on above: Performed By: #### L 500.4050, L500.4100, L100.0100 #### [facility] [address] [place], [address] Monocytes/100 WBC (Bld) 10.1 % High 0-10 [facility] Comment on above: Performed By: #### L 500.4050, L500.4100, L100.0100 #### [facility] [address] [place], [address] Neutrophils/100 WBC (Bld) 66.7 % Normal 47-70 [facility] Comment on above: Performed By: #### L 500.4050, L500.4100, L100.0100 #### [facility] [address] [place], [address] Nucleated RBC (Bld) [#/Vol] 0 10*3/uL Normal 0-5 [facility] Comment on above: Performed By: #### L 500.4050, L500.4100, L100.0100 #### [facility] [address] [place], [address] Platelet mean volume (Bld) [Entitic vol] 11.6 fL Normal 6.2-12.0 [facility] Comment on above: Performed By: #### L 500.4050, L500.4100, L100.0100 #### [facility] [address] [place], [address] Platelets (Bld) [#/Vol] 236 10*3/uL Normal 150-450 [facility] Comment on above: Performed By: #### L 500.4050, L500.4100, L100.0100 #### [facility] [address] [place], [address] RBC (Bld) [#/Vol] 4.58 10*6/uL Low 4.6-6.2 [facility] Comment on above: Performed By: #### L 500.4050, L500.4100, L100.0100 #### [facility] [address] [place], [address] RDW SD 52.5 fl High 35.1-43.9 [facility] Comment on above: Performed By: #### L 500.4050, L500.4100, L100.0100 #### [facility] [address] [place], [address] WBC (Bld) [#/Vol] 5.4 10*3/uL Normal 4.4-11.0 [facility] Comment on above: Performed By: #### L 500.4050, L500.4100, L100.0100 #### [facility] [address] [place], [address] Comprehensive Metabolic Prof [facility] 03-19-2024 Albumin [Mass/Vol] 3.9 g/dL Normal 3.2-5.0 [facility] Comment on above: Performed By: #### L 500.4050, L500.4100, L100.0100 ####[facility] [address] [place], [address] Albumin/Globulin [Mass ratio] 1.5 {ratio} Normal 0.9-2.4 [facility] Comment on above: Performed By: #### L 500.4050, L500.4100, L100.0100 ####[facility] [address] [place], [address] ALK P 63 U/L Normal 45-117 [facility] Comment on above: Performed By: #### L 500.4050, L500.4100, L100.0100 ####[facility] [address] [place], [address] ALT [Catalytic activity/Vol] 21 U/L Normal 16-61 [facility] Comment on above: Performed By: #### L 500.4050, L500.4100, L100.0100 ####[facility] [address] [place], [address] AST [Catalytic activity/Vol] 18 U/L Normal 15-37 [facility] Comment on above: Performed By: #### L 500.4050, L500.4100, L100.0100 ####[facility] [address] [place], [address] Bilirubin [Mass/Vol] 1.70 mg/dL High 0.20-1.00 [facility] Comment on above: Result Comment: For patients on eltrombopag therapy, use of Dimension Counce TBIL is not recommended. Performed By: #### L 500.4050, L500.4100, L100.0100 ####[facility] [address] [place], [address] BUN/CRE 23.9 RATIO High 10-20 [facility] Comment on above: Performed By: #### L 500.4050, L500.4100, L100.0100 ####[facility] [address] [place], [address] CA,Total 9.2 mg/dL Normal 8.5-10.1 [facility] Comment on above: Performed By: #### L 500.4050, L500.4100, L100.0100 ####[facility] [address] [place], [address] Chloride [Moles/Vol] 110 mmol/L High 98-107 [facility] Comment on above: Performed By: #### L 500.4050, L500.4100, L100.0100 ####[facility] [address] [place], [address] CO2 [Moles/Vol] 28.0 mmol/L Normal 21.0-32.0 [facility] Comment on above: Performed By: #### L 500.4050, L500.4100, L100.0100 ####[facility] [address] [place], [address] Creatinine [Mass/Vol] 1.59 mg/dL High 0.70-1.30 [facility] Comment on above: Result Comment: The validity of the calculated GFR GFRAA in patients over 70 years has not been determined. Clinical correlation is essential. Performed By: #### L 500.4050, L500.4100, L100.0100 ####[facility] [address] [place], [address] EST GFR - AA 54 mL/min Low >60 [facility] Comment on above: Result Comment: Afri can Guyanese GFR Calc Performed By: #### L 500.4050, L500.4100, L100.0100 ####[facility] [address] [place], [address] GAP 4 Low 5-15 [facility] Comment on above: Performed By: #### L 500.4050, L500.4100, L100.0100 ####[facility] [address] [place], [address] GFR/1.73 sq M.predicted among non-blacks MDRD (S/P/Bld) [Vol rate/Area] 45 mL/min/{1.73_m2} Low >60 [facility] Comment on above: Result Comment: Non- GFR Calc Performed By: #### L 500.4050, L500.4100, L100.0100 ####[facility] [address] [place], [address] Globulin (S) [Mass/Vol] 2.6 g/dL Normal 2.2-4.2 [facility] Comment on above: Performed By: #### L 500.4050, L500.4100, L100.0100 ####[facility] [address] [place], [address] Glucose [Mass/Vol] 137 mg/dL High 74-106 [facility] Comment on above: Result Comment: Fast ing Glucose result greater than or equal to 126 mg/dL suggests DIABETES MELLITUS per A.D.A. criteria. Performed By: #### L 500.4050, L500.4100, L100.0100 ####[facility] [address] [place], [address] Potassium [Moles/Vol] 5.5 mmol/L High 3.5-5.1 [facility] Comment on above: Performed By: #### L 500.4050, L500.4100, L100.0100 ####[facility] [address] [place], [address] Sodium [Moles/Vol] 142 mmol/L Normal 136-145 [facility] Comment on above: Performed By: #### L 500.4050, L500.4100, L100.0100 ####[facility] [address] [place], [address] T PROT 6.5 g/dL Normal 6.4-8.2 [facility] Comment on above: Performed By: #### L 500.4050, L500.4100, L100.0100 ####[facility] [address] [place], [address] Urea nitrogen [Mass/Vol] 38 mg/dL High 7-18 [facility] Comment on above: Performed By: #### L 500.4050, L500.4100, L100.0100 ####[facility] [address] [place], [address] Internal Medicine Office Vis gurwinder 03-19-2024 Internal Medicine Office Visit [facility] [address] [place] [address] [place] [address] OFFICE VISIT Date of Service: 03/19/24 MR#: [id number] Acct: [id number] Name: LUIS CHEN Rep #: [id number] : 1940 Provider: Dr. Cortez gold MD Age/Sex: 83/M Location: [facility] Status: Signed Intake Vital Signs 12/15/23 08:57 03/19/24 09:17 Height 6 ft 6 ft Weight: 204 lb 198 lb BMI 27.6 26.8 BP 122/78 H 118/70 Blood Pressure Location Lt brachial Lt brachial Position Sitting Sitting Respiration 16 16 Pulse 66 53 L Pulse Source Monitor Monitor Temp 98 F 97.8 F Temp Source Temporal Temporal Pulse Oximetry (%) 94 99 Oxygen Delivery Method room air room air Intake Visit Reasons: 3 M FU Chief Complaint: 3 M FU Is patient in pain?: No Allergies No Known Allergies Allergy (Unverified 03/19/24 09:15) Medications ???Medication ???Instructions ???Recorded ???Confirmed ???Type empagliflozin 25 mg tablet 25 mg PO DAILY #90 tabs 12/15/23 03/19/24 Rx levocetirizine 5 mg tablet 5 mg PO DAILY #90 tabs 12/25/23 03/19/24 Rx lisinopril 10 mg tablet 10 mg PO DAILY #90 tabs 12/25/23 03/19/24 Rx pioglitazone 30 mg tablet 30 mg PO DAILY #90 tabs 12/25/23 03/19/24 Rx simvastatin 40 mg tablet 40 mg PO QHS #90 tabs 12/25/23 03/19/24 Rx Have you fallen in the past year?: No PFSH Medical History Health care maintenance Hyperlipidemia Type 2 diabetes mellitus Prostate cancer High cholesterol HTN (hypertension) Diabetes Surgical History S/P hernia repair s/p seed implant Family History Mother Diabetes Father Cancer Social History adopted: No household members: spouse number of children: 3 current occupational status: retired pets and animals: No Smoking Status: Never smoker alcohol intake: never substance use type: does not use caffeine: No do you feel safe at home: Yes HPI HPI Chief Complaint: 3 M FU Details: LUIS CHEN, is a 83 M who presents to the office today for follow-up. No acute concerns at this time. A1c today is at 8 down from 7.3. Denies any concerns for hypoglycemia. Feels well. Also history of hypertension, blood pressure today is at 118 over 70 mmHg. No chest pain, palpitation or shortness of breath reported. ROS Const Constitutional: No body ache, chills, excessive sweating, fatigue, fever(s), frequent falls, headache(s), snoring, weakness, sleep problems or change in appetite Eyes Eyes: No blurry vision, change in vision, floaters, visual disturbances or Light sensitivity ENT ENT: No abnormal hearing, ear or mastoid pain, tinnitus, balance problems, nosebleed/epistaxis, nasal congestion, nasal discharge, headache(s), neck pain or sore throat Resp Respiratory: No cough, excessive phlegm production, pain on inspiration, shortness of breath, snoring or wheezing Cardio Cardiology: No chest pain at rest, chest pain with exertion, excessive sweating, shortness of breath, dyspnea on exertion, lightheadedness, orthopnea or palpitations Gastro GI: No abdominal pain, change in bowel habits, constipation, cramping, diarrhea or nausea/dyspepsia Genitourinary Male: No burning urination, painful urination, urinary incontinence or urinary frequency Musc Musculoskeletal: No abnormal gait, joint pain, back pain, limited range of motion, muscle weakness, neck pain or numbness Skin Skin: No dry skin, redness, excessive hair growth, yellowing of the eye, lesions, itchy eyes, rash or wounds Neuro Neurology: No abnormal gait, abnormal hearing, behavioral changes, unsteady gait/balance, weakness, frequent falls, headache(s), memory loss, numbness or visual disturbances Psych Psychiatric: No anxiety, No behavioral changes, No change in appetite, No depression, No memory loss, No panic attacks and No Thoughts of harming yourself/Others Endo Endocrine: No cold intolerance, excessive sweating, fatigue, flushing, heat intolerance, increased thirst/drinking or increased hunger Aller/Imm Allergy/Immunologic: No itchy eyes, seasonal allergy symptoms, hives or wheezing Christopher/Lymp Hematologic/Lymphatic: No easy bleeding or easy bruising Exam Const General: cooperative, comfortable and no acute distress Orientation: alert, awake and oriented x3 HENMT Head: normal to inspection, normocephalic and atraumatic Ears: hearing grossly normal bilaterally Eyes General: appearance normal, both eyes and all related structures Neck Neck: normal visual inspection, full ROM and no lymphadenopathy Neck mass: No Thyroid: thyroid normal Resp Effort Inspection: normal respiratory effort and able to speak in (more content not included)... Normal [facility] Lipid Profileon 03-19-2024 Cholesterol [Mass/Vol] 139 mg/dL Normal 200 [facility] Comment on above: Result Comment: <200 mg/dL Desirable 200-240 mg/dL Borderline >240 mg/dL High Risk Performed By: #### L 500.4050, L500.4100, L100.0100 ####[facility] [address] [place], [address] Cholesterol in HDL [Mass/Vol] 60 mg/dL Normal [facility] Comment on above: Result Comment: The drugs N-Acetylcysteine and Metamizole may falsely depress this assay. Reference Range HDL <40 mg/dL Low HDL Cholesterol HDL >or= 60 mg/dL High HDL Cholesterol Performed By: #### L 500.4050, L500.4100, L100.0100 ####[facility] [address] [place], [address] Cholesterol in LDL [Mass/Vol] 68 mg/dL Normal 0-130 [facility] Comment on above: Performed By: #### L 500.4050, L500.4100, L100.0100 ####[facility] [address] [place], [address] Cholesterol in VLDL [Mass/Vol] 11 mg/dL Normal 5-40 [facility] Comment on above: Performed By: #### L 500.4050, L500.4100, L100.0100 ####[facility] [address] [place], [address] Triglyceride [Mass/Vol] 55 mg/dL Normal [facility] Comment on above: Result Comment: The drugs N-Acetylcysteine and Metamizole may falsely depress this assay. Serum Triglycerides Reference Interval Normal <150 mg/dL Borderline high 150 - 199 mg/dL High 200 - 499 mg/dL Very High > or = 500 mg/dL Performed By: #### L 500.4050, L500.4100, L100.0100 ####[facility] [address] [place], [address] Microalb:Creat Ratio,Random URon 03-19-2024 Creatinine [Mass/Vol] 83.20 mg/dL Normal NO RANGE EST. [facility] Comment on above: Performed By: #### L 502.0250 ####[facility] [address] [place], [address] MALB:CRE TNP Normal <30 mg/g CRE [facility] Comment on above: Performed By: #### L 502.0250 ####[facility] [address] [place], [address] MICROALBUMIN,UR < 5.0 Normal NO RANGE EST. [facility] Comment on above: Performed By: #### L 502.0250 ####[facility] [address] [place], [address] Basophil percentageOrdered B y: Cortez Valle on 12-15-2023 Basophil percentage 0.18 ng/mL 0.0-4.0 [facility] Comment on above: This test was perfor med using the TPSA assay method for the[facility] chemistry system. Values obtained with differentassay methods cannot be used interchangably.When changing PSA assays in the course of monitoring apatient, additional sequential testing should be carriedout to confirm baseline values. Internal Medicine Office Vis iton 12-15-2023 Internal Medicine Office Visit [facility] [address] [place] [address] [place] [address] OFFICE VISIT Date of Service: 12/15/23 MR#: [id number] Acct: [id number] Name: LUIS CHEN Rep #: [id number] : 1940 Provider: Dr. 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 EST CARE - PPW SENT Chief Complaint: Est. 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 Medical History (Updated 12/15/23 @ 09:[address] Cortez Valle MD) Diabetes Health care maintenance High cholesterol HTN (hypertension) Hyperlipidemia Prostate cancer Type 2 diabetes mellitus Surgical History (Updated 03/18/22 @ 09:37 by Yennifer Baca) S/P hernia repair s/p seed implant Family History (Updated 12/15/23 @ 08:44 by Anne Al MA) Mother Diabetes Father Cancer Social History (Updated 12/15/23 @ 08:55 by Anne Al MA) adopted: No household members: spouse number of children: 3 current occupational status: retired pets and animals: No Smoking Status: Never smoker alcohol intake: never substance use type: does not use caffeine: No do you feel safe at home: Yes HPI HPI Chief Complaint: Est. Care Details: LUIS CHEN, is a 82 M who presents to the office today to establish care. He concerns at this time. History of diabetes mellitus type 2, A1c today is at 8. His last A1c was 8.1. Started on Jardiance 3 months ago, currently takes 10 mg daily. Also on pioglitazone. Stays active but does not necessarily engage in any formal dietary modification. Also history of hypertension, blood pressure today is at 122/78 mmHg. No chest pain, palpitation or shortness of breath. Other chronic medical conditions are stable. ROS Const Constitutional: No body ache, chills, excessive sweating, fatigue, fever(s), frequent falls, headache(s), snoring, weakness, sleep problems or change in appetite Eyes Eyes: No blurry vision, change in vision, bulging eyes, floaters, eye pain or Light sensitivity ENT ENT: No abnormal hearing, ear or mastoid pain, tinnitus, balance problems, nosebleed/epistaxis, nasal congestion, headache(s), neck pain or sore throat Resp Respiratory: No cough, excessive phlegm production, pain on inspiration, shortness of breath, snoring or wheezing Cardio Cardiology: No chest pain at rest, chest pain with exertion, excessive sweating, shortness of breath, dyspnea on exertion, lightheadedness, orthopnea or palpitations Gastro GI: No abdominal pain, change in bowel habits, constipation, cramping, diarrhea, nausea/dyspepsia or vomiting Genitourinary Male: No burning urination, painful urination, urinary incontinence, urinary frequency or urinary hesitancy Musc Musculoskeletal: No abnormal gait, joint pain, back pain, limited range of motion, muscle cramps, neck pain or numbness Skin Skin: No dry skin, redness, lesions, itchy eyes, rash or wounds Neuro Neurology: No abnormal gait, abnormal hearing, behavioral changes, confusion, weakness, frequent falls, headache(s), memory loss or numbness Psych Psychiatric: No anxiety, No behavioral changes, No change in appetite, No confusion, No depression, No memory loss and No Thoughts of harming yourself/Others Endo Endocrine: No cold intolerance, excessive sweating, fatigue, flushing, heat intolerance, increased thirst/drinking or increased hunger Aller/Imm Allergy/Immunologic: No itchy eyes, seasonal allergy symptoms, hives or wheezing Christopher/Lymp Hematologic/Lymphatic: No easy bleeding, easy bruising, enlarged lymph nodes or other Exam Const General: cooperative, comfortable and no acute distress Orientation: alert, awake and oriented x3 HENMT Head: normal to inspection, normocephalic and atraumatic Ears: hearing grossly normal bilaterally Eyes General: appearance normal, both eyes and all related structures Neck Neck: normal visual inspection, full ROM and no lymphadeno (more content not included)... Normal [facility] - Hematology and Cell countson 12-15-2023 HbA1c (Bld) [Mass fraction] 8.0 % 4.2-6.3 [facility] PSA,Total- Diagnosticon 11-17 PSA, DIAGNOSTIC 0.18 ng/mL Normal 0.0-4.0 [facility] Comment on above: Result Comment: This test was performed using the TPSA assay method for the [employer] chemistry system. Values obtained with different assay methods cannot be used interchangably. When changing PSA assays in the course of monitoring a patient, additional sequential testing should be carried out to confirm baseline values. Performed By: #### L [id number] ####[facility] [id number] [place], [address] CT Head or Brain w/o Contras ton 02-24-2019 CT Head or Brain w/o Contrast Exam Date/Time: 02/24/2019 15:11 EDT Reason for Exam: ground level fall, struck right face/forehead + LOC;Other (please specify) Report STUDY: CT Head or Brain w/o Contrast; 02/24/2019 3:11 pm INDICATION: Other (please specify). COMPARISON: None ACCESSION NUMBER(S): [id number] ORDERING CLINICIAN: Alex Blakely TECHNIQUE: CT of the brain from the skull vertex to the skull base, without intravenous contrast. FINDINGS: Maxillofacial bones, soft tissues and paranasal sinuses are described in a separate dedicated report Acute intracranial hemorrhage: Negative Acute subdural hematoma: Negative Acute intracranial mass effect: Negative CT evidence of acute / subacute territorial ischemia: Negative Ventricles: Normal caliber and configuration Other brain findings: No additional findings to note Included mastoid air cells: All clear Skull: No depressed skull fracture Extracranial soft tissues: No substantial laceration or other soft tissue injury to the scalp, occular globes or other extracranial soft tissues. IMPRESSION: NO ACUTE INTRACRANIAL PROCESS. SKULL INTACT. Exam Date/Time: 02/24/2019 15:11 EDT Report MAXILLOFACIAL BONES, SOFT TISSUES AND PARANASAL SINUSES ARE DESCRIBED IN A SEPARATE DEDICATED REPORT FINAL REPORT Dictated: 02/24/2019 3:24 pm Garry Gloria MD Signed (Electronic Signature): 02/24/2019 3:24 pm Signed by: Garry Gloria MD Technologist: NANCY [facility] CT Maxillofacial w/o Contras ton 02-24-2019 CT Maxillofacial w/o Contrast Exam Date/Time: 02/24/2019 15:11 EDT Reason for Exam: ground level fall, struck right face/forehead + LOC;Trauma Report STUDY: CT Maxillofacial w/o Contrast; 02/24/2019 3:11 pm INDICATION: Trauma. COMPARISON: None ACCESSION NUMBER(S): [id number] ORDERING CLINICIAN: Alex Blakely TECHNIQUE: CT maxillofacial bones without intravenous contrast, including coronal and sagittal reformatted images FINDINGS: ACUTE SOFT TISSUE INJURY: Negative. No substantial hematoma, skin defect, subcutaneous gas or subcutaneous radiopaque foreign body. The ocular globes are symmetric in volume and shape. ACUTE MAXILLOFACIAL BONE FRACTURE: Negative PARANASAL SINUSES: Small mucous retention cyst or polyp along right maxillary wall. Mild mucosal thickening of both maxillary sinuses predominantly inferiorly DENTITION: No acute traumatic injury or any acute unanticipated findings. OTHER: N/A IMPRESSION: NO ACUTE FRACTURE OR SUBLUXATION OF THE MAXILLOFACIAL BONES FINAL REPORT Dictated: 02/24/2019 3:34 pm Garry Gloria MD Signed (Electronic Signature): 02/24/2019 3:34 pm Signed by: Garry Gloria MD Technologist: Jd [facility] CT Spine Cervical w/o Contra ston 02-24-2019 CT Spine Cervical w/o Contrast Exam Date/Time: 02/24/2019 15:11 EDT Reason for Exam: ground level fall, struck right face/forehead + LOC;Trauma Report STUDY: CT Spine Cervical w/o Contrast; 02/24/2019 3:11 pm INDICATION: Trauma. COMPARISON: None ACCESSION NUMBER(S): [id number] ORDERING CLINICIAN: Alex Blakely TECHNIQUE: CT of the cervical spine from the craniocervical junction through C7, with coronal and sagittal reformatted images. FINDINGS: COUNTING REFERENCE: Craniocervical junction CRANIOCERVICAL JUNCTION: Intact CERVICAL ALIGNMENT: Anatomic; no acute traumatic alignment abnormality such as subluxation ACUTE FRACTURE: Negative AGGRESSIVE OSSEOUS LESION: Negative BONY CANAL AND FORAMINA: The degenerative changes are fairly mild throughout at most pronounced at C6-7 where there is a disc osteophyte complex contributing to at least mild ventral effacing the bony canal and at least mild bilateral bony foraminal stenoses PARASPINAL SOFT TISSUES: No large acute hematoma or other acute posttraumatic finding OTHER INCLUDED STRUCTURES: No acute or contributory soft tissue abnormality in the other cervical and upper thoracic soft tissues IMPRESSION: Exam Date/Time: 02/24/2019 15:11 EDT Report NO ACUTE FRACTURE OR SUBLUXATION IN THE CERVICAL SPINE FINAL REPORT Dictated: 02/24/2019 3:37 pm Garry Gloria MD Signed (Electronic Signature): 02/24/2019 3:37 pm Signed by: Garry Gloria MD Technologist: SLB Normal [facility] PSA Totalon 01-29-2019 PSA Total 0.21 ng/mL [facility] Comment on above: Result Comment: AGE- SPECIFIC REFERENCE RANGES FOR SERUM PSA REFERENCE RANGE NG/ML AGE ASIANS BLACKS WHITE 40-49 0-2 0-2 0-2.5 50-59 0-3 0-4 0-3.5 60-69 0-4 0-4.5 0-4.5 70-79 0-5 0-5.5 0-6.5 PSA INCREASES WITH AGE, RACE, AND EJACULATION WITHIN 48 HRS. [facility] VOL24,NO.2, , PG.339 Performed By: #### [id number] #### [facility] [place] [address] [facility] Repor ton 07-23-2017 [facility] Report Type: OrthopedicDictated by: To be signed by: Transcribed by: Transcribed D/ Dictation D/ Report: June 18, 2017 Shiva Morgan D.O. [address] [place] [address] Re: Luis April Dear Dr. Morgan: Mr. Chen is a 76-year-old white male who presents to the office today with a chief complaint of right small trigger finger that he has had for about 4-5 months now. It has been progressively getting worse. He does state that it is random, but it does seem to be worse in the morning. Sometimes it will lock; he has to open it with his contralateral hand. He is left-hand dominant. He has not had any treatment for this. His intake sheet and past medical history have been reviewed. He has a history of diabetes, hernia, cancer, hypertension. On exam, he is 6 feet tall, weighs 98.4 kg. Temperature is 97.5. He is awake, alert, oriented x3. Exam of his right small demonstrates no significant tenderness over the A1 narciso of the small finger and no triggering of the finger in the office today. He is able to make a composite fist. He has sensation intact to light touch, brisk capillary refill. Skin is warm and dry. ASSESSMENT: Right small trigger finger. PLAN: I discussed the natural history and treatment options with him. At this point, he does desire a steroid injection. Informed consent was obtained, risks and benefits discussed. Aseptically, the right small finger was injected around the area of the A1 narciso by Dr. Jordan using 40 mg of Depo-Medrol and a combination of local anesthetic. He tolerated the procedure well. We will see him back in 2 months' time to see how he is progressing. If he is doing well, he may call and cancel. Thank you for allowing me to participate in your patient's care. This note was dictated by Carolyn Flores PA-C. Sincerely,Copies to Physicians(s): Normal [facility] Vital Signs Date Time Vital Sign Value Performing Clinician Jaleni vinh 03-18-2025 08:20-0400 Body height 182.[address] Cortez Valle MD Work Phone: [facility] 03-18-2025 08:20-0400 Body mass index (BMI) [Ratio] 25.5 kg/m2 Dr. Cortez Valle MD Work Phone: [facility] 03-18-2025 08:20-0400 Body temperature 96.8 [degF] Dr. Cortez Valle MD Work Phone: [facility] 03-18-2025 08:20-0400 Body weight 85.[address] Cortez Valle MD Work Phone: [facility] 03-18-2025 08:20-0400 Diastolic blood pressure 60 mm[Hg] Dr. Cortez Valle MD Work Phone: [facility] 03-18-2025 08:20-0400 Heart rate 60 /min Dr. Cortez Valle MD Work Phone: [facility] 03-18-2025 08:20-0400 Respiratory rate 16 /min Dr. Cortez Valle MD Work Phone: [facility] 03-18-2025 08:20-0400 SaO2% (BldA) [Mass fraction] 98 % Dr. Cortez Valle MD Work Phone: [facility] 03-18-2025 08:20-0400 Systolic blood pressure 122 mm[Hg] Dr. Cortez Valle MD Work Phone: [facility] 12-01-2024 10:38-0400 Body mass index (BMI) [Ratio] 25.3 kg/m2 Dr. Cortez Valle MD Work Phone: [facility] 12-01-2024 10:38-0400 Body temperature 98.2 [degF] Dr. Cortez Valle MD Work Phone: [facility] 12-01-2024 10:38-0400 Body weight 84.[address] Cortez Valle MD Work Phone: [facility] 12-01-2024 10:38-0400 Diastolic blood pressure 70 mm[Hg] Dr. Cortez Valle MD Work Phone: [facility] 12-01-2024 10:38-0400 Heart rate 62 /min Dr. Cortez Valle MD Work Phone: [facility] 12-01-2024 10:38-0400 Respiratory rate 14 /min Dr. Cortez Valle MD Work Phone: [facility] 12-01-2024 10:38-0400 SaO2% (BldA) [Mass fraction] 97 % Dr. Cortez Valle MD Work Phone: [facility] 12-01-2024 10:38-0400 Systolic blood pressure 120 mm[Hg] Dr. Cortez Valle MD Work Phone: [facility] 12-15-2023 08:57-0400 Body height 182.[address] Shiva Morgan Work Phone: [facility] 12-15-2023 08:57-0400 Body mass index (BMI) [Ratio] 27.6 kg/m2 Dr. Shiva Morgan Work Phone: [facility] 12-15-2023 08:57-0400 Body temperature 98 [degF] Dr. Shiva Morgan Work Phone: [facility] 12-15-2023 08:57-0400 Body weight 92.[address] Shiva Morgan Work Phone: [facility] 12-15-2023 08:57-0400 Diastolic blood pressure 78 mm[Hg] Dr. Shiva Morgan Work Phone: [facility] 12-15-2023 08:57-0400 Heart rate 66 /min Dr. Shiva Morgan Work Phone: [facility] 12-15-2023 08:57-0400 Respiratory rate 16 /min Dr. Shiva Morgan Work Phone: [facility] 12-15-2023 08:57-0400 SaO2% (BldA) [Mass fraction] 94 % Dr. Shiva Morgan Work Phone: [facility] 12-15-2023 08:57-0400 Systolic blood pressure 122 mm[Hg] Dr. Shiva Morgan Work Phone: [facility] Encounters Encounter Date Encounter Type Care Provider Facility Start: 03-18-2025 End: 03-18-[address] Cortez Valle MD Work Phone: -[facility] Start: 03-18-2025 End: 03-18-[address] Cortez Valle MD -[facility] Work Phone: Start: 12-01-2024 End: 12-01-[address] Cortez Valle MD -[facility] Work Phone: Start: 12-01-2024 End: 12-01-2024 ambulatory [facility] Facility:[facility] Start: 06-25-2024 End: 06-25-2024 ambulatory [facility] Facility:[facility] Start: 06-25-2024 End: 06-25-2024 ambulatory [facility] Facility:[facility] Start: 04-02-2024 End: 04-02-2024 ambulatory [facility] Facility:[facility] Start: 03-19-2024 End: 03-19-2024 ambulatory [facility] Facility:[facility] Start: 03-19-2024 End: 03-19-2024 ambulatory [facility] Facility:[facility] Start: 03-10-2024 Encounter for genera l adult medical examination without abnormal findings [facility] Start: 12-15-[address] Shiva Morgan Work Phone: [facility] Start: 12-15-2023 End: 12-15-2023 Encounter for general adult medical examination without abnormal findings Dr. Shiva Morgan Work Phone: [facility] Start: 12-15-2023 End: 12-15-[address] Shiva Morgan Work Phone: [facility] Work Phone: Start: 12-15-2023 End: 12-15-[address] Shiva Morgan Work Phone: [facility] Work Phone: Start: 12-15-2023 End: 12-15-2023 ambulatory Cortez Valle Facility:[facility] Start: 02-05-2018 Patient encounter Facil [id number] Plan of Treatment Date Care Activity Detail Author Start: 03-18-2025 Basic metabolic 2008 panel with ionized calcium - Serum or Plasma [facility] Start: 12-15-2023 Patient referral [facility] Work Phone: Anion gap in Serum or Plasma [facility] BUN/Creatinine ratio [facility] Calcium [Mass/volume ] in Serum or Plasma [facility] Carbon dioxide, tota l [Moles/volume] in Central venous blood [facility] CBC W Auto Different ial panel - Blood [facility] Creatinine [Mass/vol ume] in Serum or Plasma [facility] Glucose [Mass/volume ] in Serum or Plasma [facility] Lipid 1996 panel - S rohith or Plasma [facility] Measurement of renal function [facility] Patient referral [facility] Work Phone: Potassium measurement [facility] Serum chloride measurement [facility] Sodium measurement [facility] Urea nitrogen [Mass/ volume] in Serum or Plasma [facility] Urine microalbumin/c reatinine ratio measurement [facility] Payers Date Payer Category Payer Private Health Insurance [id number] 2023 Self-pay [id number] 2023 Private Health Insurance [facility] [id number] Medicare [id number] Unknown [id number] 2.16.8 [id number] Unknown [id number] 2.16.8 [id number] Unknown [id number] 2.16.8 [id number] Unknown [id number] 2.16.8 [id number] Unknown [id number] 2.16.8 [id number] Unknown [id number] 2.16.8 [id number] Unknown [id number] 2.16.8 [id number] Unknown [id number] 2.16.8 [id number] Social History Date Type Detail Facility Start: 12-15-2023 Tobacco smoking stat [facility] Unknown if ever smoked [facility] Start: 01-22-2019 Non-smoker [facility] Start: 1940 Sex Assigned At Male [facility] Start: 12-15-2023 [facility] Progress note 03-18-2025 Note Date & Type Note Facility 03-18-2025 Progress note [facility] Progress note 03-18-2025 Note Date & Type Note Facility 03-18-2025 Progress note Note Date/Time March 18, 2025 8:57am [facility] [address] [place] [address] [place] [address] OFFICE VISIT Date of Service: 03/18/25 MR#: [id number] Acct: [id number] Name: LUIS CHEN Rep #: [id number] : 1940 Provider: Dr. 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 Accompanied by: Self Is patient in pain?: No Allergies No Known Allergies Allergy (Verified 03/18/25 08:16) Medications ?Medication ?Instructions ?Recorded ?Confirmed ?Type empagliflozin 25 mg tablet 25 mg PO DAILY #90 tabs 07/1203/18/25 Rx levocetirizine 5 mg tablet 5 mg PO DAILY #90 tabs 11/1603/18/25 Rx lisinopril 10 mg tablet 10 mg PO DAILY #90 tabs 11/1603/18/25 Rx simvastatin 40 mg tablet 40 mg PO QHS #90 tabs 03/18/25 Rx pioglitazone 45 mg tablet 45 mg PO DAILY #90 tabs 09/1103/18/25 Rx Have you fallen in the past year?: No Nurse's Note: 3 month FU [facility] Medical History Upper respiratory infection Health care maintenance Hyperlipidemia Type 2 diabetes mellitus Prostate cancer High cholesterol HTN (hypertension) Diabetes Surgical History S/P hernia repair s/p seed implant Family History Mother Diabetes Father Cancer Social History adopted: No household members: spouse number of children: 3 current occupational status: retired pets and animals: No Smoking Status: Never smoker alcohol intake: never substance use type: does not use caffeine: No do you feel safe at home: Yes HPI HPI Chief Complaint: 3 M FU Details: LUIS CHEN, is a 84 M who presents to the office today for The patient is an 84-year-old male presenting for management of Type 2 Diabetes Mellitus and Hypertension. The patient has a history of Type 2 Diabetes Mellitus, with a recent HbA1c of 7.7%, slightly improved from 7.8% at the last visit. He has made dietary changes, including switching from raisin bran to Cheerios and eliminating Splenda, which may have contributed to this improvement. The patient is currently on pioglitazone 30 mg and Jardiance. He reports compliance. The patient also has a history of hypertension, currently managed with lisinopril 10 mg daily. His blood pressure is well-controlled, and he maintains adequate hydration. Attestation: Documentation on this patient encounter was supported using ambient scribe technology/ voice AI technology. The patient consented to recording for the purpose of documenting the encounter. Provider reviewed content of the generatednote prior to signature. ROS Const Constitutional: No body ache, chills, excessive sweating, fatigue, fever(s), frequent falls, headache(s), snoring, weakness, weight change, sleep problems orchange in appetite Eyes Eyes: No blurry vision, change in vision, vision loss, dry eyes, eye pain or Light sensitivity ENT ENT: No abnormal hearing, ear or mastoid pain, tinnitus, dizziness/vertigo, nasal congestion, headache(s), neck pain or sore throat Resp Respiratory: No cough, excessive phlegm production, hemoptysis, shortness of breath, snoring or wheezing Cardio Cardiology: No chest pain at rest, chest pain with exertion, excessive sweating,shortness of breath, lightheadedness, orthopnea or palpitations Gastro GI: No abdominal pain, change in bowel habits, constipation, cramping, diarrhea,nausea/dyspepsia or vomiting Genitourinary Male: No burning urination, painful urination, urinary incontinence or urinary frequency Musc Musculoskeletal: No abnormal gait, joint pain, back pain, limited range of motion, neck pain, numbness or tingling Skin Skin: No dry skin, redness, lesions, itchy eyes, rash or wounds Neuro Neurology: No abnormal gait, abnormal hearing, abnormal speech, dizziness, weakness, frequent falls, headache(s), memory loss, numbness or tingling Psych Psychiatric: No anxiety, No change in appetite, No depression, No memory loss and No Thoughts of harming yourself/Others Endo Endocrine: No cold intolerance, excessive sweating, fatigue, flushing, heat intolerance, increased thirst/drinking, increased hunger or weight change Aller/Imm Allergy/Immunologic: No itchy eyes, seasonal allergy symptoms, hives or wheezing Christopher/Lymp Hematologic/Lymphatic: No easy bleeding, easy bruising, enlarged lymph nodes or other Exam Const General: cooperative, comfortable and no acute distress Orientation: alert, awake and oriented x3 HENMT Head: normal to inspection, normocephalic and atraumatic Ears: hearing grossly normal bilaterally Eyes General: appearance normal, both eyes and all related structures Neck Neck: normal visual inspection, full ROM and no lymphadenopathy Neck mass: No Thyroid: thyroid normal Resp Effort & Inspection: normal respiratory effort and able to speak in complete sentences Auscultation: Bilateral: Clear to Auscultation Cardio Rate: regular rate Rhythm: regular rhythm Heart Sounds: S1 normal and S2 normal GI Palpation: soft (Nontender, no palpable organomegaly.) Neuro General: patient alert, patient awake, patient oriented x3, moves all extremities and CN's II-XI intact bilaterally Extrem General: pedal edema Psych Appearance: grossly normal Mental Status: mental status grossly normal Mood: congruent mood Affect: normal affect Results POC A1C POC A1C 7.7 % Last Edit by Ashok Morley on 03/18/25 08:41 Coding Level of Care Code Off vis,est,level 4 Diagnoses Type 2 diabetes mellitus E11.9 HTN (hypertension) I10 Hyperlipidemia E78.5 Assessment and Plan Assessment and Plan (1) Type 2 diabetes mellitus: Status: Chronic Plan: Achieving better control but still not optimal. The patient's HbA1c has improved slightly to 7.7% from 7.8%, reflecting positive dietary changes. The plan includes increasing pioglitazone from 30 mg to 45 mg to further improve glycemic control, with a target HbA1c of 7.5% or lower. The patient will continue on Jardiance and return for follow-up in three months. (2) HTN (hypertension): Status: Chronic Plan: Blood pressure today at 122/60. Denies lightheadedness, syncopal or near syncopal episodes. The patient's hypertension is well-controlled with lisinopril 10 mg daily. He is advised to maintain his current medication regimen and ensure adequate hydration. (3) Hyperlipidemia: Status: Chronic Plan: Stable at last check. Continue simvastatin, dietary and lifestyle modifications. Repeat at next visit. This note was generated with [employer] dictation software. It may contain incorrectwords, spelling, and punctuation that were not noted in checking the note beforesigning. Orders: Orders POC A1C Today E11.9 - Type 2 diabetes mellitus without complications Basic Metabolic Profile (BMP) Today I10 - Essential (primary) hypertension Medications: Changed From pioglitazone 30 mg PO DAILY 90 tabs 3RF To pioglitazone 45 mg PO DAILY 90 tabs 3RF Patient Instructions: - Continue taking pioglitazone, now increased to 45 mg daily. - Maintain current Jardiance dosage. - Continue lisinopril 10 mg daily for blood pressure control. - Stay well-hydrated by drinking plenty of water. - Return for follow-up in three months. Clinical Quality Measures Falls Risk Screening/Assistive Devices Have you fallen in the past year?: No 03/18/25 0857 <Electronically signed by Cortez bowie MD> Date _ Cortez Valle MD Cosigner Signature: Date (if applicable) CC: ~ [facility] [place] Work Phone: Evaluation note 12-01-2024 Note Date & Type Note Facility 12-01-2024 Evaluation note Diagnosis Onset Date Resolution Upper respiratory infection acute December 01, 2024 10:15am HTN (hypertension) chronic December 01, 2024 10:15am Hyperlipidemia chronic November 10:15am Type 2 diabetes mellitus chronic December 01, 2024 10:15am HTN (hypertension) chronic March 18, 2025 8:10am Hyperlipidemia chronic March 8:10am Type 2 diabetes mellitus chronic March 18, 2025 8:10am [facility] [place] Work Phone: Evaluation note Note Date & Type Note Facility Evaluation note Diagnosis Onset Date Health care maintenance acut e Prostate cancer acute HTN (hypertension) chronic Hyperlipidemia chronic Type 2 [facility]: Hospital Discharge instructions Note Date & Type Note Facility Hospital Discharge instructions Ambulatory OrdersDermatology Location: None [facility] Work Phone: Reason for referral (narrative) Note Date & Type Note Facility Reason for referral (narrative) No reason for referral information available [facility] [place] [facility] Work Phone: Summary Purpose Family History Relationship Condition Age at Onset Recorded Date/T sriram mother Diabetes mellitus Unknown father Malignant neoplasm Unknown Advance Directives Advance Directive Response Recorded Date/ Time Living Will No January 22, 2019 8 :39am Power of Nursery Nurse No January 22, 2019 8:39am Chief Complaint and Reason for Visit Chief Complaint [facility] Reason for Visit Health care maintena nce Prostate cancer HTN (hypertension) Hyperlipidemia Type 2 diabetes mellitus Chief Complaint Admit Date 5 M FU December 01, 2024 10: 15am 3 M FU March 18, 2025 8:1 0am Reason for Visit Admit Date Upper respiratory infection December 01, 2024 10:15am HTN (hypertension) December 01, 2024 10: 15am Hyperlipidemia December 01, 2024 10: 15am Type 2 diabetes mellitus December 01 10:15am HTN (hypertension) March 18, 2025 8:1 0am Hyperlipidemia March 18, 2025 8:1 0am Type 2 diabetes mellitus March 18 8:10am Additional Source Comments (unrecognized sect ion and content) No Status Records FoundNo Status Records FoundNo Status Records FoundNo Status Records Found INFORMATION SOURCE (unrecogn ized section and content) DATE CREATED AUTHOR 03/12/2018 [facility] DATE CREATED AUTHOR AUTHOR'S ORGANIZ ATION 04/10/2018 [facility] DATE CREATED AUTHOR AUTHOR'S ORGANIZ ATION 02/24/2019 [facility] DATE CREATED AUTHOR AUTHOR'S ORGANIZ ATION 12/03/2024 [facility] Care Teams (unrecognized sec tion and content) Team Status: Active Member Role Status Dates Dr. Shiva Morgan MD Family Provider Active Dr. Cortez Valle MD Primary Care Provider Active Team Status: Inactive Member Role Status Dates Dr. Shiva Morgan MD Primary Care Provider, Referring Provider Active Dr. Cortez Valle MD Attending Provider Active Team Status: Inactive Member Role Status Dates Dr. Cortez Valle MD Primary Care Provider, Atten ding Provider Active Team Status: Active Member Role/Relationship Status Dates Dr. Shiva Morgan MD Family Provider Active Dr. Cortez Valle MD Primary Care Provider Active Team Status: Inactive Member Role/Relationship Status Dates Dr. Cortez Valle MD Primary Care Provider Active Start: December 01, 2024 End: December 01, 2024 Dr. Cortez Valle MD Attending Provider Active Start: December 01, 2024 End: December 01, 2024 Dr. Cortez Valle MD Referring Provider Active Start: December 01, 2024 End: December 01, 2024 Team Status: Inactive Member Role/Relationship Status Dates Dr. Cortez Valle MD Primary Care Provider Active Start: March 18, 2025 End: March 18, 2025 Dr. Cortez Valle MD Attending Provider Active Start: March 18, 2025 End: March 18, 2025 Dr. Cortez Valle MD Referring Provider Active Start: March 18, 2025 End: March 18, 2025 Team Status: Active Member Role/Relationship Status Dates Dr. Cortez Valle MD Primary Care Provider Active Start: March 18, 2025 Dr. Cortez Valle MD Attending Provider Active Start: March 18, 2025 Dr. Cortez Valle MD Referring Provider Active Start: March 18, 2025 Goals (unrecognized section and content) Goals may be documented in a n alternate sectionGoals may be documented in an alternate section FOR RECORDS PERTAINING TO PATIENTS WHO ARE OR HAVE BEEN ENROLLED IN A CHEMICAL DEPENDENCY/SUBSTANCEABUSE PROGRAM, SOME INFORMATION MAY BE OMITTED. This clinical summary was aggregated from multiple sources. Caution should be exercised in using it in the provision of clinical care. This summary normalizes information from multiple sources, and as a consequence, information in this document may materially change the coding, format and clinical context of patient data. In addition, data may be omitted in some cases. CLINICAL DECISIONS SHOULD BE BASED ON THE PRIMARY CLINICAL RECORDS. [employer] provides no warranty or guarantee of the accuracy or completeness of information in this document.
[2025-03-18 12:45] LABS: Anion Gap 8 (5-15); BUN 36 mg/dL (4-19); BUN/Creat Ratio 24.3 RATIO (10-20); Calcium,Total 9.3 mg/dL (7.6-11.0); Carbon Dioxide 25.3 mmol/L (21.0-32.0); Chloride 108 mmol/L (98-108); Glucose 142 mg/dL (70-99); Potassium 5.0 mmol/L (3.3-5.1)
== END | disposition home or self-care (01) ==
LOC: BIMLAB 08:54
PROVIDERS: PCP Internal Medicine; Referring Provider Internal Medicine; Visit Provider Internal Medicine
DX: I10 Essential (primary) hypertension (principal)
CPT/HCPCS: 36415; 80048

== ENCOUNTER → 2025-06-20 | Outpatient (CLI) | payer MEDICARE, SELFPAY ==
[2025-06-20 09:16] LABS: Hematocrit 44.7 % (40-54); Hemoglobin 14.5 g/dL (13.0-16.5); Immature Granulocytes Count 0.020 X10^3/uL (0.0-0.0); Mean Corp Hgb Conc 32.4 g/dL (32-36); Mean Corpuscular Volume 100.2 fL (80-94); Mean Platelet Vol. 10.9 fl (6.2-12.0); NRBC Flagged by Analyzer 0 % (0-5); Platelet Count 239 K/mm3 (150-450); RBC Distribution Width CV 13.9 % (11.6-14.6); RBC Distribution Width SD 51.1 fl (35.1-43.9); Red Blood Count 4.46 M/mm3 (4.6-6.2); White Blood Count 5.4 K/mm3 (4.4-11.0)
[2025-06-20 09:40] LABS: Creatinine, Urine (random) 81.80 mg/dL (39.00-259.00); Microalbumin,Random Urine < 12.0 mg/L (<20 mg/L)
[2025-06-20 10:11] LABS: AST(SGOT) 17 U/L (<=37); Alanine Aminotransfer ALT/SGPT 11 U/L (<=46); Albumin, Serum 4.2 g/dL (3.4-4.8); Alkaline Phosphatase 65 U/L (40-129); Anion Gap 8 (5-15); BUN 35 mg/dL (4-19); BUN/Creat Ratio 25.4 RATIO (10-20); Calcium,Total 9.2 mg/dL (7.6-11.0); Carbon Dioxide 27.8 mmol/L (21.0-32.0); Chloride 107 mmol/L (98-108); Cholesterol 139 mg/dL (<=200); Globulin 2.0 g/dL (2.2-4.2); Glucose 138 mg/dL (70-99); Low Density Lipoprotein Calc. 66 mg/dL; PSA,Total - Annual Screen 0.16 ng/mL (0.02-4.00); Potassium 4.9 mmol/L (3.3-5.1); Triglycerides 74 mg/dL; Very Low Density Lipoprotein 15 mg/dL (5-40); cholesterol:hdl ratio screen 2.39
== END | disposition home or self-care (01) ==
LOC: LAB 08:36
PROVIDERS: PCP Internal Medicine; Referring Provider Internal Medicine; Visit Provider Internal Medicine
DX: I10 Essential (primary) hypertension (principal); C61 Malignant neoplasm of prostate; E11.9 Type 2 diabetes mellitus without complications; Z12.5 Encounter for screening for malignant neoplasm of prostate
CPT/HCPCS: 36415; 80053; 80061; 82043; 82570; 84153; 85025; G0103